=== PATIENT | female | born 1990 | race Caucasian/White ===

== ENCOUNTER 2016-11-28 17:34 | Inpatient (IN) | payer OTHER ==
[~2016-11-28] VITALS: Ht 170.2 cm; Wt 129.0 kg
[~2016-11-28 17:34] MED LIST: ATARAX,VISTARIL25 MG PO; COLACE100 MG PO; LORTAB 5-325 M1 EACH PO; MOTRIN600 MG PO; NITROFURANTOIN100 M3 PO; NOHOMEMEDS; PRENATAL PLUS1 EAC3 PO; PROAIR HFA8.5 GM IH; TYLENOL WITH C1 EACH PO; ZOFRAN ODT8 MG PO
[2016-11-28 17:47] VITALS: BP 120/74
[2016-11-28 19:45] VITALS: BP 122/68
[2016-11-28 20:08] LABS: EOSINOPHIL (%) 0.6 % (0-5); EOSINOPHIL COUNT 0.1 K/uL (0-0.3); IMMATURE GRANULOCYTE (%) 0.2 % (0.0-0.7); IMMATURE GRANULOCYTE COUNT 0.2 K/uL; LYMPHOCYTE COUNT 1.9 K/uL (1.0-2.8); MCH 32.6 PG (29.0-34.0); MCHC 35.5 G/DL (30.0-36.0); MCV 91.8 FL (83-99); MEAN PLAT.VOLUME 12.4 uM^3 (9.5-12.4); MONOCYTE (%) 5.4 % (3-12); MONOCYTE COUNT 0.6 K/uL (0-0.8); NEUTROPHIL (%) 76.5 % (45-76); NEUTROPHIL COUNT 8.6 K/uL (1.8-6.4); PLATELET COUNT 177 K/uL (156-360); RBC DIS.WIDTH-CV 13.4 % (11.8-14.6); RED BLOOD COUNT 4.14 M/uL (3.80-5.20); WHITE BLOOD COUNT 11.2 K/uL (4.1-10.2)
[2016-11-28 21:15] VITALS: BP 120/71
[2016-11-28 22:15] VITALS: BP 140/74
[2016-11-28 22:16] VITALS: BP 124/70
[2016-11-28 23:17] VITALS: BP 130/61
[2016-11-29] VITALS (24 sets, daily range): BP systolic 102–138; BP diastolic 58–82
[2016-11-30 03:19] VITALS: BP 134/67
[2016-11-30 07:09] LABS: EOSINOPHIL (%) 0.2 % (0-5); HEMATOCRIT 30.3 % (36.0-46.0); IMMATURE GRANULOCYTE (%) 0.3 % (0.0-0.7); IMMATURE GRANULOCYTE COUNT 0.1 K/uL; LYMPHOCYTE COUNT 1.5 K/uL (1.0-2.8); MCH 31.9 PG (29.0-34.0); MCV 93.8 FL (83-99); MEAN PLAT.VOLUME 12.3 uM^3 (9.5-12.4); MONOCYTE (%) 7.3 % (3-12); MONOCYTE COUNT 1.2 K/uL (0-0.8); NEUTROPHIL COUNT 13.6 K/uL (1.8-6.4); NRBC (%) 0.2 /100 WBC (0-0); PLATELET COUNT 126 K/uL (156-360); RBC DIS.WIDTH-CV 13.8 % (11.8-14.6); RBC DIS.WIDTH-SD 47.5 % (39-53)
[2016-11-30 07:11] LABS: WHITE BLOOD COUNT 16.3 K/uL (4.1-10.2)
[2016-11-30 07:12] LABS: RED BLOOD COUNT 3.23 M/uL (3.80-5.20)
[2016-11-30 07:54] VITALS: BP 124/81
[2016-11-30 11:54] VITALS: BP 118/79
[2016-11-30 15:01] VITALS: BP 138/82
[2016-11-30 19:25] VITALS: BP 122/69
[2016-11-30 23:04] VITALS: BP 153/77
[2016-12-01 03:46] VITALS: BP 115/66
[2016-12-01 07:07] VITALS: BP 124/76
[2016-12-01 11:00] VITALS: BP 139/63
[2016-12-01 15:45] VITALS: BP 116/56
[2016-12-01 19:36] VITALS: BP 128/64
[2016-12-01 22:40] VITALS: BP 120/80
[2016-12-02 03:10] VITALS: BP 129/66
[2016-12-02 07:43] VITALS: BP 132/77
[2016-12-02] MEDS ORDERED: ENDOCET 5-3251 EACH PO (09:43)
[2016-12-02] MEDS ORDERED: IBUPROFEN800 MG PO (09:43)
[2016-12-02 10:52] VITALS: BP 131/77
== END 2016-12-02 14:46 | disposition home or self-care (01) | DRG 765 ==
LOC: LDRP-OP → 2WEST 17:35 → LDRP-OP 12-30 15:58
PROVIDERS: Advanced Practice Midwife; Obstetrics & Gynecology
DX: O65.4 Obstructed labor due to fetopelvic disproportion, unspecified (principal); Z68.41 Body mass index [BMI] 40.0-44.9, adult; Z37.0 Single live birth; Z3A.40 40 weeks gestation of pregnancy; E66.01 Morbid (severe) obesity due to excess calories; O99.214 Obesity complicating childbirth; O76 Abnormality in fetal heart rate and rhythm complicating labor and delivery; O62.1 Secondary uterine inertia; O69.81X1 Labor and delivery complicated by cord around neck, without compression, fetus 1; O77.0 Labor and delivery complicated by meconium in amniotic fluid
CPT/HCPCS: 85025; 86850; 86900; 86901; 88307; C1755; G0378; J0330; J0595; J0690; J1100; J1170; J2270; J2274; J2405; J2795; J3010; J7120

== ENCOUNTER 2016-12-08 17:06 | Outpatient (CLI) | payer OTHER ==
[~2016-12-08] VITALS: Ht 170.2 cm; Wt 139.0 kg
[~2016-12-08 17:06] MED LIST changes: +ENDOCET 5-3251 EACH PO; +IBUPROFEN800 MG PO
[2016-12-08 18:24] LABS: HEMATOCRIT 32.3 % (36.0-46.0); MCH 31.4 PG (29.0-34.0); MCHC 33.7 G/DL (30.0-36.0); MCV 93.1 FL (83-99); RBC DIS.WIDTH-CV 13.3 % (11.8-14.6); RBC DIS.WIDTH-SD 43.2 % (39-53); RED BLOOD COUNT 3.47 M/uL (3.80-5.20); WHITE BLOOD COUNT 13.1 K/uL (4.1-10.2)
[2016-12-08 18:28] LABS: BASOPHIL COUNT 0.1 K/uL (0-0.1); EOSINOPHIL (%) 0.5 % (0-5); EOSINOPHIL COUNT 0.1 K/uL (0-0.3); IMMATURE GRANULOCYTE (%) 0.8 % (0.0-0.7); IMMATURE GRANULOCYTE COUNT 1.1 K/uL; LYMPHOCYTE COUNT 2.8 K/uL (1.0-2.8); MEAN PLAT.VOLUME 11.1 uM^3 (9.5-12.4); MONOCYTE (%) 5.4 % (3-12); MONOCYTE COUNT 0.7 K/uL (0-0.8); NEUTROPHIL (%) 71.5 % (45-76); NEUTROPHIL COUNT 9.3 K/uL (1.8-6.4); PLATELET COUNT 255 K/uL (156-360)
[2016-12-08 18:35] LABS: INTER. NORMALIZED RATIO 1.1; PROTHROMBIN TIME 11.2 (9.2-11.2); PTT 29.4 (25-32)
[2016-12-08 18:36] LABS: CHLORIDE 107 mEq/L (99-109); POTASSIUM 4.1 mEq/L (3.7-5.4); SODIUM 140 mEq/L (136-147)
[2016-12-08 18:39] LABS: GLUCOSE 100 mg/dL (70-99)
[2016-12-08 18:40] LABS: ANION GAP 13 MEQ/L (2-14)
[2016-12-08 18:41] LABS: TOTAL BILIRUBIN 0.4 mg/dL (0.0-1.0)
[2016-12-08 18:42] LABS: ALKALINE PHOSPHATASE 388 IU/L (3-129); GFR ESTIMATE (CALCULATED) > 59 mL/min/
[2016-12-08 18:43] LABS: UREA NITROGEN (BUN) 12 mg/dL (9-23)
[2016-12-08 18:49] LABS: TROP-I INTERPRETATION NEGATIVE; TROPONIN-I < 0.01 ng/mL (0.0-0.30)
[2016-12-08 19:28] LABS: ADD MIUA? YES; BILIRUBIN NEGATIVE; BLOOD LARGE; COLOR YELLOW ((YELLOW)); GLUCOSE (STRIP) NEGATIVE; KETONES NEGATIVE; LEUKOCYTES LARGE; NITRITE NEGATIVE; PROTEIN (STRIP) 30; SPECIFIC GRAVITY 1.009 (1.000-1.030)
[2016-12-08 19:55] LABS: WHITE BLOOD CELLS TNTC /HPF (0-5)
[2016-12-08 21:42] VITALS: BP 193/92
[2016-12-08 22:21] VITALS: BP 194/89
[2016-12-08 22:50] VITALS: BP 191/94
[2016-12-08 23:23] VITALS: BP 185/88
[2016-12-08 23:29] VITALS: BP 176/92
[2016-12-08 23:59] VITALS: BP 148/71
[2016-12-09] VITALS (25 sets, daily range): BP systolic 116–160; BP diastolic 67–83
[2016-12-10] VITALS (12 sets, daily range): BP systolic 127–168; BP diastolic 73–88
[2016-12-10] MEDS ORDERED: AMOX TR-K CLV1 EAC4 PO (12:04)
[2016-12-10] MEDS ORDERED: NIFEDIPINE ER30 MG PO (12:30)
== END 2016-12-10 14:00 | disposition home or self-care (01) ==
LOC: LDRP-OP 17:06 → EME 17:06 → 2WEST 21:40 → EDSTATUS 21:40 → 2WEST 12-10 14:00
PROVIDERS: Emergency Medicine
DX: O14.95 Unspecified pre-eclampsia, complicating the puerperium (principal)
CPT/HCPCS: 71020; 71275; 80053; 81003; 84484; 85025; 85610; 85730; 93005; 99281; 99284; G0378; J0360; J2270; J3475; J7030; J7120

== ENCOUNTER 2017-04-02 15:58 | Emergency (ER) | payer SELFPAY ==
[~2017-04-02] VITALS: Ht 170.2 cm; Wt 115.5 kg
[~2017-04-02 15:58] MED LIST changes: +AMOX TR-K CLV1 EAC4 PO; +NIFEDIPINE ER30 MG PO
[2017-04-02] MEDS ORDERED: AMOXICILLIN500 MG PO (17:07)
[2017-04-02 17:29] VITALS: BP 136/78
== END 2017-04-02 17:30 | disposition home or self-care (01) ==
LOC: EME 15:58
DX: H66.91 Otitis media, unspecified, right ear (principal)
CPT/HCPCS: 99281; 99282

== ENCOUNTER 2017-10-08 02:28 | Emergency (ER) | payer OTHER ==
[~2017-10-08] VITALS: Ht 172.7 cm; Wt 121.7 kg
[~2017-10-08 02:28] MED LIST changes: +AMOXICILLIN500 MG PO; +EXCEDRIN MIGRA1 EAC3 PO; +ONDANSETRON ODT4 MG PO
[2017-10-08 03:28] LABS: EOSINOPHIL (%) 1.6 % (0-5); EOSINOPHIL COUNT 0.2 K/uL (0-0.3); HEMATOCRIT 40.3 % (36.0-46.0); IMMATURE GRANULOCYTE (%) 0.3 % (0.0-0.7); LYMPHOCYTE COUNT 2.5 K/uL (1.0-2.8); MCH 30.9 PG (29.0-34.0); MCV 90.8 FL (83-99); MEAN PLAT.VOLUME 11.5 uM^3 (9.5-12.4); MONOCYTE (%) 6.5 % (3-12); MONOCYTE COUNT 0.8 K/uL (0-0.8); NEUTROPHIL (%) 69.9 % (45-76); PLATELET COUNT 190 K/uL (156-360); RBC DIS.WIDTH-SD 43.1 % (39-53); RED BLOOD COUNT 4.44 M/uL (3.80-5.20); WHITE BLOOD COUNT 11.5 K/uL (4.1-10.2)
[2017-10-08 03:40] LABS: CHLORIDE 104 mEq/L (99-109); POTASSIUM 3.7 mEq/L (3.7-5.4); SODIUM 138 mEq/L (136-147)
[2017-10-08 03:42] LABS: GLUCOSE 112 mg/dL (70-99)
[2017-10-08 03:44] LABS: ANION GAP 10 MEQ/L (2-14); TOTAL BILIRUBIN 0.5 mg/dL (0.0-1.0)
[2017-10-08 03:46] LABS: ALKALINE PHOSPHATASE 133 IU/L (3-129); GFR ESTIMATE (CALCULATED) > 59 mL/min/
[2017-10-08 03:47] LABS: UREA NITROGEN (BUN) 9 mg/dL (9-23)
[2017-10-08 03:50] LABS: LIPASE 13 U/L (1.0-51.0)
[2017-10-08 03:56] LABS: QUANTITATIVE HCG < 4.0 MIU/ML
[2017-10-08] MEDS ORDERED: ULTRAM50 MG PO (05:27)
[2017-10-08] MEDS ORDERED: CARAFATE1 GM PO (05:27)
[2017-10-08 05:59] VITALS: BP 110/55
== END 2017-10-08 06:16 | disposition home or self-care (01) ==
LOC: EME 02:28
PROVIDERS: Emergency Medicine
DX: K80.20 Calculus of gallbladder without cholecystitis without obstruction (principal); F17.200 Nicotine dependence, unspecified, uncomplicated; Z88.8 Allergy status to other drugs, medicaments and biological substances
CPT/HCPCS: 76705; 80053; 81003; 83690; 84702; 85025; 99281; 99284; J2405; J3010; J7030

== ENCOUNTER 2017-12-04 01:53 | Emergency (ER) | payer OTHER ==
[~2017-12-04] VITALS: Ht 170.2 cm; Wt 120.3 kg
[~2017-12-04 01:53] MED LIST changes: +CARAFATE1 GM PO; +ULTRAM50 MG PO
[2017-12-04 02:31] LABS: HEMATOCRIT 40.5 % (36.0-46.0); MCH 31.5 PG (29.0-34.0); MCHC 34.6 G/DL (30.0-36.0); PLATELET COUNT 205 K/uL (156-360); RBC DIS.WIDTH-CV 12.3 % (11.8-14.6); RED BLOOD COUNT 4.45 M/uL (3.80-5.20); WHITE BLOOD COUNT 10.2 K/uL (4.1-10.2)
[2017-12-04 02:48] LABS: ALBUMIN 4.1 g/dL (3.2-4.8)
[2017-12-04 02:49] LABS: CHLORIDE 105 mEq/L (99-109); POTASSIUM 4.1 mEq/L (3.7-5.4); SODIUM 141 mEq/L (136-147)
[2017-12-04 02:51] LABS: GLUCOSE 103 mg/dL (70-99)
[2017-12-04 02:53] LABS: TOTAL BILIRUBIN 0.4 mg/dL (0.0-1.0)
[2017-12-04 02:54] LABS: ALKALINE PHOSPHATASE 196 IU/L (3-129)
[2017-12-04 02:55] LABS: CREATININE 0.8 mg/dL (0.6-1.3); GFR ESTIMATE (CALCULATED) > 59 mL/min/
[2017-12-04 02:56] LABS: AST (GOT) 90 IU/L (2-34); UREA NITROGEN (BUN) 14 mg/dL (9-23)
[2017-12-04 02:57] LABS: ALT (GPT) 122 IU/L (3-49)
[2017-12-04 02:58] LABS: LIPASE 18 U/L (1.0-51.0)
[2017-12-04 03:03] LABS: QUANTITATIVE HCG < 4.0 MIU/ML
[2017-12-04] MEDS ORDERED: PERCOCET 5/31 TABLET PO (03:43)
[2017-12-04 03:57] VITALS: BP 130/80
== END 2017-12-04 03:57 | disposition home or self-care (01) ==
LOC: EME 01:53 → EXP 01:53
DX: K80.70 Calculus of gallbladder and bile duct without cholecystitis without obstruction (principal); Z87.891 Personal history of nicotine dependence; Z88.8 Allergy status to other drugs, medicaments and biological substances
CPT/HCPCS: 76705; 80053; 81003; 83690; 84702; 85027; 99281; 99284

== ENCOUNTER 2018-02-23 06:50 | Day surgery (SDC) | payer OTHER ==
[~2018-02-23] VITALS: Ht 170.2 cm; Wt 115.9 kg
[~2018-02-23 06:50] MED LIST changes: +PERCOCET 5/31 TABLET PO
[2018-02-23 07:28] LABS: HEMATOCRIT 39.8 % (36.0-46.0); HEMOGLOBIN 13.6 G/DL (11.9-15.5); MCH 30.7 PG (29.0-34.0); MCHC 34.2 G/DL (30.0-36.0); MCV 89.8 FL (83-99); PLATELET COUNT 211 K/uL (156-360); RBC DIS.WIDTH-CV 12.5 % (11.8-14.6); RBC DIS.WIDTH-SD 41.3 % (39-53); RED BLOOD COUNT 4.43 M/uL (3.80-5.20); WHITE BLOOD COUNT 9.8 K/uL (4.1-10.2)
[2018-02-23 07:57] VITALS: BP 123/66
[2018-02-23 07:57] LABS: ALBUMIN 3.8 G/DL (3.2-4.8); ALKALINE PHOSPHATASE 99 IU/L (3-129); ALT (GPT) 26 IU/L (3-49); AST (GOT) 21 IU/L (2-34); CHLORIDE 105 MEQ/L (99-109); CREATININE 0.8 MG/DL (0.6-1.3); GFR ESTIMATE (CALCULATED) > 59 mL/min/; GLUCOSE 114 mg/dL (70-99); POTASSIUM 3.6 MEQ/L (3.7-5.4); SODIUM 137 MEQ/L (136-147); TOTAL BILIRUBIN 0.3 MG/DL (0.0-1.0); TOTAL PROTEIN 6.9 G/DL (6.4-8.3); UREA NITROGEN (BUN) 16 mg/dL (9-23)
[2018-02-23] MEDS ORDERED: HYDROCODON-ACE1 EAC7 PO (10:26)
[2018-02-23 12:07] VITALS: BP 102/60
[2018-02-23 13:00] VITALS: BP 107/65
[2018-02-23 13:38] VITALS: BP 107/69
== END 2018-02-23 13:50 | disposition home or self-care (01) ==
LOC: SDC 06:50
PROVIDERS: Surgery
PROC: 0FT44ZZ Resection of Gallbladder, Percutaneous Endoscopic Approach (ICD-10-PCS; principal; 2018-02-23)
DX: K80.10 Calculus of gallbladder with chronic cholecystitis without obstruction (principal); K76.0 Fatty (change of) liver, not elsewhere classified; E66.01 Morbid (severe) obesity due to excess calories; Z68.41 Body mass index [BMI] 40.0-44.9, adult; F17.290 Nicotine dependence, other tobacco product, uncomplicated; Z88.8 Allergy status to other drugs, medicaments and biological substances
CPT/HCPCS: 80053; 85027; 88304; J0131; J0330; J1100; J1170; J1885; J2250; J2405; J2710; J3475; S0074